=== PATIENT | male | born 1980 | race Caucasian/White ===

== ENCOUNTER → 2020-07-21 | Outpatient (CLI) | payer MEDICAID ==
--- NOTE | 2020-07-21 15:58 | RADIOLOGY REPORT (SQ) ---
EXAM DESCRIPTION: VENOUS BILATERAL LOWER IMAGES COMPLETED DATE/TIME: 07/21/2020 3:47 pm REASON FOR STUDY: EDEMA R60.0 LOCALIZED EDEMA L81.9 DISORDER OF PIGMENTATION, UNSPECIFIED COMPARISON: None. TECHNIQUE: Dynamic and static sheth scale and color images acquired of both lower extremity venous sy stems. Selected spectral images acquired with additional compression and augmentation maneuvers. Imag es stored on PACS. LIMITATIONS: Limited visualization of some structures secondary to body habitus. FINDINGS: RIGHT LEG COMMON FEMORAL AND FEMORAL: Normal phasicity, compression and augmentation. No visualized echogenic m aterial on sheth scale. No defects on color images. Could not visualize distal femoral vein secondary to body habitus. POPLITEAL: Normal compression and augmentation. No visualized echogenic material on sheth scale. No de fects on color images. CALF VESSELS: Normal compression and augmentation. No visualized echogenic material on sheth scale. No defects on color image. GSV AND SSV: Normal compression. No visualized echogenic material on sheth scale. No defects on color images. ANY DEEP VENOUS INSUFFICIENCY: Not evaluated. ANY EVIDENCE OF POPLITEAL CYST: No. OTHER: No other significant finding. LEFT LEG COMMON FEMORAL AND FEMORAL: Normal phasicity, compression and augmentation. No visualized echogenic m aterial on sheth scale. No defects on color images. Could not visualize distal femoral vein secondary to body habitus. POPLITEAL: Normal compression and augmentation. No visualized echogenic material on sheth scale. No de fects on color images. CALF VESSELS: Normal compression and augmentation. No visualized echogenic material on sheth scale. No defects on color images. GSV AND SSV: Normal compression. No visualized echogenic material on sheth scale. No defects on color images. ANY DEEP VENOUS INSUFFICIENCY: Not evaluated. ANY EVIDENCE POPLITEAL CYST: No. OTHER: No other significant finding. IMPRESSION: No evidence of DVT or SVT in either leg. Limited visualization of the distal femoral ve ins secondary to body habitus. TECHNICAL DOCUMENTATION: JOB ID: [id number] 2010 [employer]- All Rights Reserved Reading location - IP/workstation name: [email or web address]
--- NOTE | 2020-07-21 16:01 | RADIOLOGY REPORT (SQ) ---
EXAM DESCRIPTION: ARTERIAL LOWER EXTREM BILAT IMAGES COMPLETED DATE/TIME: 07/21/2020 3:48 pm REASON FOR STUDY: EDEMA R60.0 LOCALIZED EDEMA L81.9 DISORDER OF PIGMENTATION, UNSPECIFIED COMPARISON: None. TECHNIQUE: Dynamic and static sheth scale and color images acquired of the lower extremity arteries. Additional selected spectral images recorded. ABIs recorded. LIMITATIONS: None. FINDINGS: RIGHT LEG: ABIS: Normal, over 1.0. INFLOW ARTERIES: Normal, no obstruction evident. FEMORAL ARTERIES:Could not visualize distal superficial femoral artery secondary to body habitus. Mu ltiphasic waveforms. Normal, no velocity elevation to suggest focal stenosis. Normal color Doppler ev aluation. No aneurysm. POPLITEAL ARTERY:Multiphasic waveforms. Normal, no velocity elevation to suggest focal stenosis. Norm al color Doppler evaluation. No aneurysm. PATENT TIBIOPERONEAL TRUNK AND 3 VESSEL RUNOFF: Yes, normal vessels. TBI: Not performed. OTHER: No other significant finding. LEFT LEG: ABIS: Normal, over 1.0. INFLOW ARTERIES: Normal, no obstruction evident. FEMORAL ARTERIES: Could not visualize distal superficial femoral arteries secondary to body habitus. Multiphasic waveforms. Normal, no velocity elevation to suggest focal stenosis. Normal color Dopple r evaluation. No aneurysm. POPLITEAL ARTERY:Multiphasic waveforms. Normal, no velocity elevation to suggest focal stenosis. Norm al color Doppler evaluation. No aneurysm. PATENT TIBIOPERONEAL TRUNK AND 3 VESSEL RUNOFF: Yes, normal vessels. TBI: Not performed. OTHER: No other significant finding. IMPRESSION: NORMAL BILATERAL LOWER EXTREMITY ARTERIAL DOPPLER WITH ABIs VISUALIZED. COMMENT: [facility] NORMAL: Greater than 1.0 MINIMAL DISEASE: 0.9 to 1.0 CLAUDICATION: 0.5 to 0.9 SEVERE ARTERIAL DISEASE: Less than 0.5 [facility] NORMAL: Greater than 1.0 (1.2 If Heavy Calcifications) NORMAL TO MILD ISCHEMIA: 0.8 to 1.0 MODERATE ISCHEMIA: 0.4 to 0.8 SEVERE ISCHEMIA: Less than 0.4 TECHNICAL DOCUMENTATION: JOB ID: [id number] [employer]- All Rights Reserved Reading location - IP/workstation name: [email or web address]
== END ==
LOC: SP 13:12
PROVIDERS: ATTEND Nurse Practitioner Family
DX: R60.0 Localized edema (principal); L81.9 Disorder of pigmentation, unspecified
CPT/HCPCS: 93925; 93970